=== PATIENT | female | born 1935 | race Caucasian/White ===

== ENCOUNTER 2016-12-24 13:26 | Observation (INO) | payer MEDICARE ==
[~2016-12-24] VITALS: Ht 165.1 cm; Wt 90.7 kg
[2016-12-24 14:20] LABS: HEMOGLOBIN 11.2 gm/dl (12.3-15.3); RED BLOOD COUNT 3.9 M/UL (4.00-5.10); WHITE BLOOD COUNT 9.7 K/UL (4.5-11.0)
[2016-12-24] MEDS ORDERED: COREG 25MG TAB25 MG PO (22:44)
[2016-12-24] MEDS ORDERED: CATAPRES 0.1MG0.1 MG PO (22:45)
[2016-12-24] MEDS ORDERED: DEMADEX 20 MG T20 MG PO (22:45)
[2016-12-24] MEDS ORDERED: PROTONIX 40 MG40 M1 PO (22:46)
[2016-12-24] MEDS ORDERED: LIPITOR TAB 2020 MG PO (22:47)
[2016-12-24] MEDS ORDERED: SYNTHROID 50 M50 MCG PO (22:47)
[2016-12-24] MEDS ORDERED: ASPIR 8181 MG PO (22:52)
[2016-12-24] MEDS ORDERED: SERTRALINE HCL100 MG PO (22:52)
[2016-12-24] MEDS ORDERED: SULFAMETHOXAZO1 EAC1 PO (22:52)
[2016-12-24] MEDS ORDERED: HUMALOG100 UNIT/1 SQ (22:53)
[2016-12-24] MEDS ORDERED: LANTUS INS100 UTS/M1 SQ (22:54)
[2016-12-25 04:44] LABS: BUN/CREATININE RATIO 23 (0-10)
[2016-12-25] MEDS ORDERED: ZESTRIL/PRINIVI10 MG PO (20:14)
[2016-12-25] MEDS ORDERED: COREG 3.125M3.125 MG PO (20:14)
[2016-12-25] MEDS ORDERED: IMDUR ER TAB 3030 MG PO (20:15)
[2016-12-25] MEDS ORDERED: NITROGLYCERIN0.4 MG SL (20:15)
== END 2016-12-25 21:18 | disposition home or self-care (01) ==
LOC: ER1 13:26 → MED SURG 4 15:43 → ZEROF 15:43 → MED SURG 4 21:08
PROVIDERS: Emergency Medicine; ADMIT Internal Medicine
DX: R07.9 Chest pain, unspecified (principal); R00.1 Bradycardia, unspecified; D64.9 Anemia, unspecified; I25.10 Atherosclerotic heart disease of native coronary artery without angina pectoris; E11.22 Type 2 diabetes mellitus with diabetic chronic kidney disease; I12.9 Hypertensive chronic kidney disease with stage 1 through stage 4 chronic kidney disease, or unspecified chronic kidney disease; N18.3 Chronic kidney disease, stage 3 (moderate); K21.9 Gastro-esophageal reflux disease without esophagitis; Z86.73 Personal history of transient ischemic attack (TIA), and cerebral infarction without residual deficits; Z87.442 Personal history of urinary calculi; Z91.041 Radiographic dye allergy status; Z79.4 Long term (current) use of insulin; Z79.82 Long term (current) use of aspirin; Z79.899 Other long term (current) drug therapy; Z90.710 Acquired absence of both cervix and uterus; Z95.1 Presence of aortocoronary bypass graft
CPT/HCPCS: ECHO; 36415; 71020; 78452; 80048; 80053; 80061; 80076; 82550; 82553; 82962; 83036; 83690; 83735; 83880; 84439; 84443; 84484; 85025; 85610; 85730; 93005; 93017; 93306; 96374; 96375; 96376; 99285; A9502; G0008; G0378; J2405; J2785; J3475; J7050; Q2039